=== PATIENT | female | born 2000 | race Caucasian/White ===

== ENCOUNTER 2025-02-21 19:32 | Outpatient (REF) | payer SELFPAY ==
[2025-02-27 21:07] LABS: Age Gdln ACOG Testing Note (.); HPV Aptima Positive (Negative); IGP, rfx Aptima HPV ASCU Note (.)
== END 2025-02-21 19:33 | disposition home or self-care (01) ==
LOC: LAB 19:32
PROVIDERS: Visit Provider Physician Assistant
DX: Z01.419 Encounter for gynecological examination (general) (routine) without abnormal findings (principal)
CPT/HCPCS: 87624; 88175

== ENCOUNTER 2025-03-25 10:23 | Outpatient (REF) | payer SELFPAY ==
--- OUTSIDE RECORDS SUMMARY | 2025-03-25 14:30 | XMS_ITS | Encounter Summary ---
Author Organization [facility] Address [address] [place] [address] Care Team Providers Care Industrial Engineering Intern Name Role Phone Yudy Dick FARMWORKER FRUIT Unavailable Unallocated, Noms Provider Primary Care Provi johana Reason for Visit * Reason Comments Colposcopy Encounter Details Date Type Department Care Team (Late st Contact Info) Description 03/25/2025 2:30 PM EDT Procedure Visit [facility] [address] [facility] [place] [address] Dread Morel, [address] [facility] [address] [place], [facility] ASCUS with positive high risk HPV cervical; Nipple discharge; control counseling; Exposure to STD; Vaginal discharge; BV (bacterial vaginosis); Yeast infection Social History Tobacco Use Types Packs/Day Years Used Date Smoking Tobacco: Never Smokeless Tobacco: Never Alcohol Use Standard Drinks/Week Comments Not Currently 0 (1 standard drink = 0.6 oz pur e alcohol) Comments No Sex and Gender Information Value Date Recorded Sex Assigned at Not on file Legal Sex Female 10:14 PM EDT Gender Identity Not on file Sexual Orientation Not on file documented as of this encounter Last Filed Vital Signs Vital Sign Reading Time Taken Comments Blood Pressure 110/70 03/25/2025 2:34 PM EDT Pulse - - Temperature - - Respiratory Rate - - Oxygen Saturation - - Inhaled Oxygen Concentration - - Weight 71.3 kg (157 lb 1.9 oz) 03/25/2025 2:34 P M EDT Height - - Body Mass Index 30.69 11/25/2022 12:00 PM EDT documented in this encounter Progress Notes * Antonieta Perez, ESTELA - 03/25/2025 2:30 PM EDTAssociated Order(s): Colposcopy Post-Procedure Diagnose(s): ASCUS with positive high risk HPV cervical Reason for Appointment: Patient ID: Lorri Rosen is a 24 y.o. female who presents for Colposcopy Patient presents today for a Colposcopy and consult appointment. MEDICATIONS Current Outpatient Medications Medication Instructions desogestrel-ethinyl estradiol (Apri) 0.15-30 MG-MCG tablet 1 tablet, Oral, Daily fluconazole (DIFLUCAN) 150 mg, Once metroNIDAZOLE (FLAGYL) 500 mg, Oral, 2 times daily, Do not drink alcohol while taking this medication ALLERGIES No Known Allergies PROBLEMS Active Ambulatory Problems Diagnosis Date Noted Vaginal discharge 09/22/2023 Dyspareunia in female 09/22/2023 Resolved Ambulatory Problems Diagnosis Date Noted No Resolved Ambulatory Problems Past Medical History: Diagnosis Date 02/03/2024 BV (bacterial vaginosis) History of UTI HISTORY PAST MEDICAL HISTORY SOCIAL HISTORY Past Medical History: Diagnosis Date 02/03/2024 BV (bacterial vaginosis) History of UTI Social History Tobacco Use Smoking status: Never Smokeless tobacco: Never Substance Use Topics Alcohol use: Not Currently Drug use: Never FAMILY HISTORY Family History Problem Relation Name Age of Onset Endometriosis Sister Ovarian cancer Sister Other (Estrogen driven cancer) Maternal Grandmother SURGICAL HISTORY History reviewed. No pertinent surgical history. REVIEW OF SYSTEMS Review of Systems: Review of Systems Constitutional: Negative. HENT: Negative. Eyes: Negative. Respiratory: Negative. Cardiovascular: Negative. Gastrointestinal: Negative. Genitourinary: Positive for vaginal discharge. Musculoskeletal: Negative. Skin: Negative. Neurological: Negative. All other systems reviewed and are negative. Hematological: Negative. Endocrine: Negative. Allergic/Immunologic: Negative. OBJECTIVE Objective: Physical Exam Constitutional: Appearance: Normal appearance. She is well-developed. Genitourinary: Vulva normal. Breasts: Right: Nipple discharge present. Left: Nipple discharge present. Cardiovascular: Rate and Rhythm: Normal rate and regular rhythm. Pulmonary: Effort: Pulmonary effort is normal. Breath sounds: Normal breath sounds. Abdominal: General: Bowel sounds are normal. There is no distension. Palpations: Abdomen is soft. Tenderness: There is no abdominal tenderness. There is no guarding or rebound. Musculoskeletal: General: No swelling. Normal range of motion. Right lower leg: No edema. Left lower leg: No edema. Neurological: Mental Status: She is alert and oriented to person, place, and time. Skin: General: Skin is warm and dry. Psychiatric: Mood and Affect: Mood normal. Behavior: Behavior normal. Vitals and nursing note reviewed. Exam conducted with a rejoiner present. Vitals: Estimated body mass index is 30.69 kg/m?? as calculated from the following: Height as of 11/25/22: 5'. Weight as of this encounter: 157 lb 1.9 oz. BP: 110/70 No LMP recorded (approximate). (Menstrual status: Oral Contraception). ASSESSMENT & PLAN Assessment/Plan Encounter Diagnosis: ICD-10-CM 1. ASCUS with positive high risk HPV cervical R87.610 POCT , urine manually resulted R87.810 Colposcopy 2. Nipple discharge N64.52 hCG, quantitative, TSH T4, free CBC and differential Follicle stimulating hormone Luteinizing hormone Hemoglobin A1c DHEA-sulfate DHEA Prolactin DHEA BV every 2-3 weeks, bilateral nipple discharge--cotton underwear, sensitive skin soap--metrogel Colposcopy Date/Time: 03/25/2025 3:27 PM Performed by: Dread Morel DO Authorized by: Dread Morel DO Procedure location: cervix Consent: Patient questions answered: yes Risks and benefits of the procedure and its alternatives discussed: yes Consent obtained: Written Consent given by: Patient Indication: Cervical indication(s): high-risk HPV positive and ASCUS Pre-procedure: Speculum was placed in the vagina: yes Prep solution(s): acetic acid Procedure: Colposcopy with: endocervical curettage Biopsy taken: no Cervix visibility: fully visualized Cervical impression: normal/benign Ferric subsulfate solution applied: no Tampon inserted: no Post-procedure: Patient tolerance of procedure: Patient tolerated the procedure well with no immediate complications Instructions and paperwork completed: yes Educational handouts given: no Colposcopy: Patient is doing well and has no complaints. Pap results have been reviewed with the patient in great detail and patient voiced understanding. Patient presents today for a Colposcopy with ECC. Patient was placed in dorsal lithotomy position with feet in stirrups, a sterile speculum was placed into the vagina and the cervix was visualized. Cervix was cleansed with vinegar. Postprocedural instructions given. All if patients questions answered and she expressed understanding. Advised to call in interim with questions or concerns. Patient also complaints of bilateral nipple discharge and ongoing vaginal discharge/BV. Discussed with patient regimen of Flagyl BID for 7 days, then Metrogel twice weekly for 3-6 months & also sent in Diflucan x2 doses after completing Flagyl regimen. Obtained vaginal cultures to send out for testing. Patient also had complaints of bilateral nipple discharge and patient was able excrete nipple discharge from left nipple and culture was obtained to ravi/aerobic testing. Follow Up: Patient is to schedule telehealth appointment in 8 weeks to follow up in vaginal discharge and see if medication regimen is working. Patient also to return in 6 months for Repeat Pap. Documented by Antonieta Perez LPN on behalf of: Dread Morel DO documented in this encounter Plan of Treatment Upcoming Encounters Date Type Department Care Team (Late st Contact Info) Description 05/20/2025 8:10 AM EDT Office Visit [facility] [address] [place] [address] Dread Morel DO [address] [place] [address] 10/02/2025 3:00 PM EST Procedure Visit OMISES HOFFMAN [address] [place] [address] Dread Morel DO [address] [place] [address] Scheduled Orders Name Type Priority Associated Diagnoses Order Schedule Colposcopy Procedures Routine ASCUS with positive high risk HPV cervical Expected: 03/25/2025 (Approximate), Expires: 03/25/2026 hCG, quantitative, Lab Routine Nipple discharge Ordered: 03/25/2025 TSH Lab Routine Nipple discharge Ordered: 03/25/2025 T4, free Lab Routine Nipple discharge Ordered: 03/25/2025 CBC and differential Lab Routine Nipple discharge Ordered: 03/25/2025 Follicle stimulating hormone Lab Routine Nipple discharge Ordered: 03/25/2025 Luteinizing hormone Lab Routine Nipple discharge Ordered: 03/25/2025 Hemoglobin A1c Lab Routine Nipple discharge Ordered: 03/25/2025 DHEA-sulfate Lab Routine Nipple discharge Ordered: 03/25/2025 DHEA Lab Routine Nipple discharge Expected: 03/25/2025 (Approximate), Expires: 03/25/2026 Prolactin Lab Routine Nipple discharge Ordered: 03/25/2025 SURESWAB(R) ADVANCED VAGINITIS PLUS, TMA Pathology and Cytology Routine Vaginal discharge Ordered: 03/25/2025 CHLAMYDIA TRACHOMATIS (GENITO/STI) Lab Routine Exposure to STD Ordered: 03/25/2025 Neisseria gonorrhea DNA probe, direct Lab Routine Exposure to STD Ordered: 03/25/2025 Anaerobic culture Microbiology Routine Nipple discharge Ordered: 03/25/2025 Aerobic culture Microbiology Routine Nipple discharge Ordered: 03/25/2025 documented as of this encounter Procedures Procedure Name Priority Date/Time Associated Diagnosis Comments COLPOSCOPY Routine 03/25/2025 3:27 PM EDT ASCUS with positive high risk HPV cervical POCT , URINE Routine 03/25/2025 2:43 PM EDT ASCUS with positive high risk HPV cervical documented in this encounter Results * Colposcopy (03/25/2025 3:27 PM EDT) Antonieta Lauren LPN - 03/25/2025 3:27 PM EDT Antonieta Perez LPN 03/27/2025 3:18 PM Colposcopy Date/Time: 03/25/2025 3:27 PM Performed by: Dread Morel DO Authorized by: Dread Morel DO Procedure location: cervix Consent: Patient questions answered: yes Risks and benefits of the procedure and its alternatives discussed: yes Consent obtained: Written Consent given by: Patient Indication: Cervical indication(s): high-risk HPV positive and ASCUS Pre-procedure: Speculum was placed in the vagina: yes Prep solution(s): acetic acid Procedure: Colposcopy with: endocervical curettage Biopsy taken: no Cervix visibility: fully visualized Cervical impression: normal/benign Ferric subsulfate solution applied: no Tampon inserted: no Post-procedure: Patient tolerance of procedure: Patient tolerated the procedure well with no immediate complications Instructions and paperwork completed: yes Educational handouts given: no us Dread Maria Teresa DO IN CLINIC/BEDSIDE ORDERABLES Fin al Result * POCT , urine manually resulted (03/25/2025 2:43 PM EDT) Preg Test, Ur Negative Negative Urine 03/25/2025 2:43 PM EDT us Dread Maria Teresa DO POINT OF CARE TEST ENTER/EDIT OR DERABLES Final Result documented in this encounter Visit Diagnoses Diagnosis ASCUS with positive high risk HPV cervical Nipple discharge Other sign and symptom in breast control counseling Exposure to STD Vaginal discharge Leukorrhea, not specified as infective BV (bacterial vaginosis) Unspecified vaginitis and vulvovaginitis Yeast infection documented in this encounter Care Teams Industrial Engineering Intern Relationship Specialty Start Date End Date Unallocated, Noms Provider, [place] [address] PCP - General 07/04/23 Yudy Dick NP [address] [place] [address] Referring Physician Family Medicine 07/04/23 documented as of this encounter
--- OUTSIDE RECORDS SUMMARY | 2025-04-02 10:26 | XMS_ITS | Encounter Summary ---
Author Organization [facility] Address [address] [facility] [place] [address] Care Team Providers Care Pot Fisher Name Role Phone Yudy Dick ELECTRICAL APPLIANCE SERVICER Unavailable Unallocated, Noms Provider Primary Care Provi johana Encounter Details Date Type Department Care Team (Late Contact Info) Description 03/01/2025 Orders Only MOISES HOFFMAN [address] [place] [address] [place] [address] Vi Villatoro MA [address] [place] [address] [place] [address] Social History Tobacco Use Types Packs/Day Years [...] on file documented as of this encounter Plan of Treatment Upcoming Encounters Date Type Department Care Team (Late Contact Info) Description 05/20/2025 8:10 AM EDT Office Visit MOISES HOFFMAN [address] [place] [address] [place] [address] Dread Morel, DO [address] [facility] [address] Kane [place], [facility]11 10/02/2025 3:00 PM EST Procedure Visit MOISES HOFFMAN [address] [place] [address] [place] [address] Dread Morel, DO [address] [place], [facility]11 documented as of this encounter Procedures Procedure Name Priority Date/Time Associated Diagnosis Comments PAP SMEAR Routine 02/22/2024 12:00 AM EDT documented in this encounter Results * (ABNORMAL) Pap Smear (02/22/2024 12:00 AM EDT) Swab Cervical swab / Unknown Nasreen PEREZ LAB CYTOLOGY ORDERABLES Final Re sult EXTERNAL LAB documented in this encounter Visit Diagnoses Not on filedocumented in this encounter Care Teams Pot Fisher Relationship Specialty Start Date End Date Unallocated, Noms Provider, [address] [place] [address] PCP - General 07/04/23 Yudy Dick NP [address] [place] [address] Referring Physician Family Medicine 07/04/23 documented as of this encounter
--- OUTSIDE RECORDS SUMMARY | 2025-04-02 10:26 | XMS_ITS | Encounter Summary ---
Author Organization [facility] Address [address] [place] [address] Care Team Providers Care Vp Mobile Products Name Role Phone Yudy Dick CONVERTER SKIMMER Unavailable Unallocated, Noms Provider Primary Care Provi johana Encounter Details Date Type Department Care Team (Late Contact Info) Description 03/05/2025 Orders Only MOISES HOFFMAN [address] [facility] [place] [address] Ashley Morley LPN [address] [facility] [address] [facility]11 Social History Tobacco Use Types Packs/Day Years [...] AM EDT Office Visit MOISES HOFFMAN [address] [facility] [place] [address] Dread Morel DO [address] [facility] [address] [place], [place] [id number] 10/02/2025 3:00 PM EST Procedure Visit [facility]OM[facility] HOFFMAN [address] [place] [address] [place] [address] Dread Morel DO [address] [place], [place] [address] [place] [address] documented as of this encounter Procedures Procedure Name Priority Date/Time Associated Diagnosis Comments PAP SMEAR Routine 02/21/2025 12:00 AM EDT documented in this encounter Results * (ABNORMAL) Pap Smear (02/21/2025 12:00 AM EDT) Swab Cervical swab / Unknown Maria Teresa Nurse Noms Bcp Ob LAB CYTOLOGY ORDERABLES Final Result EXTERNAL LAB documented in this encounter Visit Diagnoses Not on filedocumented in this encounter Care Teams Vp Mobile Products Relationship Specialty Start Date End Date Unallocated, Noms Provider, [place] [address] PCP - General 07/04/23 Yudy Dick NP [address] [place] [address] Referring Physician Family Medicine 07/04/23 documented as of this encounter
--- OUTSIDE RECORDS SUMMARY | 2025-04-02 10:26 | XMS_ITS | Encounter Summary ---
Author Organization [facility] Address [address] [place] [address] Care Team Providers Care Dance Critic Name Role Phone Yudy Dick MANAGER ASSEMBLY Unavailable Unallocated, Noms Provider Primary Care Provi johana Encounter Details Date Type Department Care Team (Late st Contact Info) Description 03/25/2025 External Result Encounter [facility] External Department Unsolicited Dread Morel, DO [address] [place], [facility]11 Social History Tobacco Use Types Packs/Day [...] 8:10 AM EDT Office Visit MOISES HOFFMAN [facility] [address] Dread Morel, DO [address] [place], [facility]11 10/02/2025 3:00 PM EST Procedure Visit MOISES HOFFMAN [facility] [place] [address] Dread Morel, DO [address] [place], [place] [id number] documented as of this encounter Procedures Procedure Name Priority Date/Time Associated Diagnosis Comments RECURRENT VAGINITIS (HTRX) Routine 03/25/2025 3:24 PM EDT documented in this encounter Results * (ABNORMAL) RECURRENT VAGINITIS (HTRX) (03/25/2025 3:24 PM EDT) [facility] ATOPOBIUM VAGINAE 0 19.961 - 24.689 ppm 03/26/2025 12:06 PM EDT [facility] ATOPOBIUM VAGINAE Not Detected 19.961 - 24.689 ppm 03/26/2025 12:06 PM EDT [facility] BVAB 2,3 (BACTERIAL VAGINOSIS ASSOCIATED BACTERIA 2, 3); MOBILUNCUS SPP 0 19.961 - 24.689 ppm 03/26/2025 12:06 PM EDT [facility] BVAB 2,3 (BACTERIAL VAGINOSIS ASSOCIATED BACTERIA 2, 3); MOBILUNCUS SPP Not Detected 19.961 - 24.689 ppm 03/26/2025 12:06 PM EDT [facility] CAN ALBICANS, PARAPSILOSIS, TROPICALIS 0 23.000 - 30.347 ppm 03/26/2025 12:06 PM EDT [facility] CAN ALBICANS, PARAPSILOSIS, TROPICALIS Not Detected 23.000 - 30.347 ppm 03/26/2025 12:06 PM EDT [facility] CAN GLABRATA 0 23.000 - 31.618 ppm 03/26/2025 12:06 PM EDT [facility] CAN GLABRATA Not Detected 23.000 - 31.618 ppm 03/26/2025 12:06 PM EDT [facility] CAN KRUSEI 0 23.000 - 30.873 ppm 03/26/2025 12:06 PM EDT [facility] CAN KRUSEI Not Detected 23.000 - 30.873 ppm 03/26/2025 12:06 PM EDT [facility] CHLAMYDIA TRACHOMATIS 0 23.000 - 31.586 ppm 03/26/2025 12:06 PM EDT [facility] CHLAMYDIA TRACHOMATIS Not Detected 23.000 - 31.586 ppm 03/26/2025 12:06 PM EDT [facility] GARDNERELLA VAGINALIS 27.334(A) 19.961 - 24.689 ppm 03/26/2025 12:06 PM EDT [facility] GARDNERELLA VAGINALIS Detected(A) 19.961 - 24.689 ppm 03/26/2025 12:06 PM EDT [facility] MEGASPHAERA (TYPES 1, 2) 0 19.961 - 24.689 ppm 03/26/2025 12:06 PM EDT [facility] MEGASPHAERA (TYPES 1, 2) Not Detected 19.961 - 24.689 ppm 03/26/2025 12:06 PM EDT [facility] NEISSERIA GONORRHOEAE 0 23.000 - 32.587 ppm 03/26/2025 12:06 PM EDT [facility] NEISSERIA GONORRHOEAE Not Detected 23.000 - 32.587 ppm 03/26/2025 12:06 PM EDT [facility] TRICHOMONAS VAGINALIS 0 23.000 - 31.995 ppm 03/26/2025 12:06 PM EDT [facility] TRICHOMONAS VAGINALIS Not Detected 23.000 - 31.995 ppm 03/26/2025 12:06 PM EDT [facility] MYCOPLASMA GENITALIUM 0 19.961 - 24.689 ppm 03/26/2025 12:06 PM EDT [facility] MYCOPLASMA GENITALIUM Not Detected 19.961 - 24.689 ppm 03/26/2025 12:06 PM EDT [facility] ERMB, C; MEFA 25.313(A) 23.000 - 27.500 ppm 03/26/2025 12:06 PM EDT [facility] ERMB, C; MEFA Detected(A) 23.000 - 27.500 ppm 03/26/2025 12:06 PM EDT [facility] TET B, TET M 25.93(A) 23.000 - 27.500 ppm 03/26/2025 12:06 PM EDT [facility] TET B, TET M Detected(A) 23.000 - 27.500 ppm 03/26/2025 12:06 PM EDT [facility] Tissue 03/25/2025 3:24 PM EDT 03/26/2025 1:19 AM EDT us Dread Maria Teresa DO LAB BLOOD ORDERABLES Final Resul t [facility] [address] [id number] documented in this encounter Visit Diagnoses Not on filedocumented in this encounter Care Teams Dance Critic Relationship Specialty Start Date End Date Unallocated, Noms Provider, [address] [place] [address] PCP - General 07/04/23 Yudy Dick NP [address] [place] [address] Referring Physician Family Medicine 07/04/23 documented as of this encounter
--- OUTSIDE RECORDS SUMMARY | 2025-04-02 10:26 | XMS_ITS | Encounter Summary ---
Author Organization [facility] Address [address] [facility] [place] [address] Care Team Providers Care Data Input Clerk Name Role Phone Yudy Dick INORGANIC CHEMISTRY PROFESSOR Unavailable Unallocated, Noms Provider Primary Care Provi johana Encounter Details Date Type Department Care Team (Late Contact Info) Description 02/24/2024 Abstract MOISES HOFFMAN [place] [address] Dread Morel DO [address], [facility]11 Social History Tobacco Use Types Packs/Day Years Used Date Smoking Tobacco: Never Smokeless Tobacco: Never Alcohol Use Standard Drinks/Week Comments Not Currently 0 (1 standard drink = 0.6 oz pur e alcohol) Comments Unknown Sex and Gender Information Value Date Recorded Sex Assigned at Not on file Legal Sex Female 10:14 PM EDT Gender Identity Not on file Sexual Orientation Not on file documented as of this encounter Plan of Treatment Upcoming Encounters Date Type Department Care Team (Late st Contact Info) Description 05/20/2025 8:10 AM EDT Office Visit MOISES HOFFMAN [address] [place] [address] Dread Morel DO [address] [place], [place] [id number] 10/02/2025 3:00 PM EST Procedure Visit MOISES HOFFMAN [address] [place] [address] Dread Morel DO [address] [place] [address] [place] [address] documented as of this encounter Visit Diagnoses Not on filedocumented in this encounter Care Teams Data Input Clerk Relationship Specialty Start Date End Date Unallocated, Noms Provider, [address] [place] [address] PCP - General 07/04/23 Yudy Dick NP [address] [place] [address] Referring Physician Family Medicine 07/04/23 documented as of this encounter
--- OUTSIDE RECORDS SUMMARY | 2025-04-02 10:26 | XMS_ITS | Encounter Summary ---
Author Organization [facility] Address [address] [place] [address] Care Team Providers Care Obstetrics Gynecology Physician Name Role Phone Yudy Dick LEGAL AIDE Unavailable Unallocated, Noms Provider Primary Care Provi johana Encounter Details Date Type Department Care Team (Late Contact Info) Description 04/01/2025 Telephone [facility] OBG[facility] [address] [place] [address] Dread Morel DO [address] [place], [facility]11 Social History Tobacco Use Types Packs/Day Years [...] on file documented as of this encounter Miscellaneous Notes * Telephone Encounter - Ashley Morley LPN - 04/01/2025 2:36 PM EDT Patient called the office and she did have some questions in regards to the labs she did see with the lower values. Patient labs given to Provider and was advised this is due to the Slynd. Patient was called and made aware and voiced understanding. documented in this encounter Plan of Treatment Upcoming Encounters Date Type Department Care Team (Late Contact Info) Description 05/20/2025 8:10 AM EDT Office Visit [facility] [address] [place] [phone] Dread Morel, DO [address] [facility] [place] [address] 10/02/2025 3:00 PM EST Procedure Visit MOISES HOFFMAN [address] [place] [address] Dread Morel, DO [address] [facility] [address] [place], [place] [id number] documented as of this encounter Visit Diagnoses Not on filedocumented in this encounter Care Teams Obstetrics Gynecology Physician Relationship Specialty Start Date End Date Unallocated, Noms MD [place] [address] [place] [address] PCP - General 07/04/23 Yudy Dick NP [address] [place] [address] Referring Physician Family Medicine 07/04/23 documented as of this encounter
--- OUTSIDE RECORDS SUMMARY | 2025-04-02 10:26 | XMS_ITS | Encounter Summary ---
Author Organization [facility] Address [address] [place] [address] Care Team Providers Care Product Safety Engineer Name Role Phone Mayelin, Yudy HYDROELECTRIC PRODUCTION TECHNICIAN Unavailable Unallocated, Noms Provider Primary Care Provi johana Encounter Details Date Type Department Care Team (Late st Contact Info) Description 03/22/2025 Telephone [facility] [address] [employer] [place] [phone] Taylor New LPN [address] [employer] [place] [id number] Social History Tobacco Use Types Packs/Day Years [...] encounter Miscellaneous Notes * Telephone Encounter - Taylor New LPN - 03/22/2025 8:18 AM EDT Pt called stating that about a week ago she thought she had BV and self treated with boric acid. After doing that she noticed that she had a white/skin color chunk of lining come out and it worried her. She called in to get metrogel called in because she was still having symptoms and while using this, she a 2 quarter size bloody chunks of lining come out and this really worried her. After talking to Dr. Morel, I told pt that it may have been from the medications and not to worry about it. Dr. Morel said they could talk more about it at her appointment this coming Tuesday.PVU documented in this encounter Plan of Treatment Upcoming Encounters Date Type Department Care Team (Late st Contact Info) Description 05/20/2025 8:10 AM EDT Office Visit [facility]OFF[facility] [address] [place] [address] [place] [phone] Dread Morel, DO [address] [facility] [address] [place], [place] [address] 10/02/2025 3:00 PM EST Procedure Visit [facility]ES HOFFMAN [address] [facility] [place] [phone] Dread Morel, DO [address] [facility] [address] [place], [id number] documented as of this encounter Visit Diagnoses Not on filedocumented in this encounter Care Teams Product Safety Engineer Relationship Specialty Start Date End Date Unallocated, Noms [place], [address] [place] [address] PCP - General 07/04/23 Yudy Dick NP [address] [place] [phone] Referring Physician Family Medicine 07/04/23 documented as of this encounter
--- OUTSIDE RECORDS SUMMARY | 2025-04-02 10:26 | XMS_ITS | Encounter Summary ---
Author Organization [facility] Address [address] [place] [address] Care Team Providers Care Traffic Maintenance Officer Name Role Phone Yudy Dick QUAD STAYER Unavailable Unallocated, Noms Provider Primary Care Provi johana Encounter Details Date Type Department Care Team (Late st Contact Info) Description 03/26/2025 Telephone [facility]BGYN [address] [facility] [phone] Vi Villatoro MA [address] [place] [address] Social History Tobacco Use Types Packs/Day Years [...] encounter Miscellaneous Notes * Telephone Encounter - Vi Villatoro MA - 03/26/2025 9:29 AM EDT Called pt to advise of cx results. Pt stated she is [facility] Nuvessa medication sent to her. Pt was aware of cx results. And asked if her other 2 results came back too? I advised pt only the healthtrack results came back. It will be a few days until we get results fromthe others that were sent out. PVU documented in this encounter Plan of Treatment Upcoming Encounters Date Type Department Care Team (Late st Contact Info) Description 05/20/2025 8:10 AM EDT Office Visit MO[facility]ES HOFFMAN [address] [facility] [address] Dread Morel, DO [address] [facility] [place] [address] 10/02/2025 3:00 PM EST Procedure Visit MOISES HOFFMAN [address] [facility] [place] [address] Dread Morel, DO [address] [facility] [address] [place], [place] [phone] documented as of this encounter Visit Diagnoses Not on filedocumented in this encounter Care Teams Traffic Maintenance Officer Relationship Specialty Start Date End Date Unallocated, Noms MD [place] [address] [place] [id number] PCP - General 07/04/23 Yudy Dick NP [address] [place] [address] [phone] Referring Physician Family Medicine 07/04/23 documented as of this encounter
--- OUTSIDE RECORDS SUMMARY | 2025-04-02 10:26 | XMS_ITS | Encounter Summary ---
Author Organization [facility] Address [address] [facility] [place] [address] Care Team Providers Care Patternmaker Plaster Name Role Phone Yudy Dick COPY SUPERVISOR Unavailable Unallocated, Noms Provider Primary Care Provi johana Encounter Details Date Type Department Care Team (Late Contact Info) Description 03/19/2025 Telephone [facility]MAN [facility] [place] [address] Taylor New LPN [facility] [place] [address] Social History Tobacco Use Types Packs/Day Years [...] Miscellaneous Notes * Telephone Encounter - Taylor eNw LPN - 03/19/2025 9:38 AM EDT Pt called needing flagyl and diflucan called into her pharmacy. I told her that I could do that forher. PVU documented in this encounter Plan of Treatment Upcoming Encounters Date Type Department Care Team (Late Contact Info) Description 05/20/2025 8:10 AM EDT Office Visit [facility]chal HOFFMAN [facility] [employer] [place] [phone] Dread Morel, [address] [facility] [place] [address] 10/02/2025 3:00 PM EST Procedure Visit [facility] [place] [facility] [address] [facility] [place] [address] Dread Morel, DO [address] [facility] [place] [address] documented as of this encounter Visit Diagnoses Diagnosis Yeast infection BV (bacterial vaginosis) Unspecified vaginitis and vulvovaginitis documented in this encounter Care Teams Patternmaker Plaster Relationship Specialty Start Date End Date Unallocated, Noms MD [place] [address] [place] [address] PCP - General 07/04/23 Yudy Dick NP [address] [place] [id number] Referring Physician Family Medicine 07/04/23 documented as of this encounter
--- OUTSIDE RECORDS SUMMARY | 2025-04-02 10:26 | XMS_ITS | Encounter Summary ---
Author Organization [facility] Address [address] [place] [address] Care Team Providers Care Basket Turner Name Role Phone Yudy Dick HANDBAG OPERATOR Unavailable Unallocated, Noms Provider Primary Care Provi johana Encounter Details Date Type Department Care Team (Late st Contact Info) Description 03/25/2025 Clinisync Result Encounter [facility] External Department Unsolicited Dread Morel, DO [address] [place], [facility] Social History Tobacco Use Types Packs/Day [...] 8:10 AM EDT Office Visit MOISES HOFFMAN [facility] [place] [address] Dread Morel, DO [address] [place], [place] [address] 10/02/2025 3:00 PM EST Procedure Visit [facility]ES HOFFMAN [address] [place] [address] Dread Morel, DO [address] [place], [facility] documented as of this encounter Procedures Procedure Name Priority Date/Time Associated Diagnosis Comments TBH PROLACTIN Routine 03/25/2025 3:45 PM EDT TBH PREG QUANT HCG Routine 03/25/2025 3: 45 PM EDT MLR HEMOGLOBIN A1C Routine 03/25/2025 3: 45 PM EDT ALL THYROXINE (T4) FREE Routine 03/25/2025 3:45 PM EDT ALL THYROID STIM HORMONE Routine 03/25/2025 3:45 PM EDT ALL LUTEINIZING HORMONE Routine 03/25/2025 3:45 PM EDT ALL FOLLICLE STIMULATING HORMONE Routine 03/25/2025 3:45 PM EDT ALL DHEA SULFATE Routine 03/25/2025 3:45 PM EDT ALL CBC WITH AUTO DIFF Routine 03/25/2025 3:45 PM EDT documented in this encounter Results * TBH PROLACTIN (03/25/2025 3:45 PM EDT) PROLACTIN 8.2 4.8 - 33.4 ng/mL TBH Comment: Performed at: - Lab[address] [id number] Airbrush Artist: Harpal Durbin PhD, Phone: [phone] 03/25/2025 3:45 PM EDT 03/25/2025 3:47 PM EDT Narrative [facility]IN[facility] - 03/27/2025 4:07 AM EDT us Dread Maria Teresa DO [facility]IN[facility] Final Result [facility] TB * ALL FOLLICLE STIMULATING HORMONE (03/25/2025 3:45 PM EDT) FSH 0.4 . mIU/mL TBH Comment: Adult Female Range Follicular phase 3.5 - 12.5 Ovulation phase 4.7 - 21.5 Luteal phase 1.7 - 7.7 Postmenopausal 25.8 - 134.8 03/25/2025 3:45 PM EDT 03/25/2025 3:47 PM EDT Narrative CLINISY[facility] - 03/27/2025 4:07 AM EDT us Dread Maria Teresa DO [facility] * ALL LUTEINIZING HORMONE (03/25/2025 3:45 PM EDT) LUTEINIZING HORMONE(LH) <0.3 . mIU/mL TBH Comment: Adult Female Range Follicular phase 2.4 - 12.6 Ovulation phase 14.0 - 95.6 Luteal phase 1.0 - 11.4 Postmenopausal 7.7 - 58.5 03/25/2025 3:45 PM EDT 03/25/2025 3:47 PM EDT Narrative CLINISYNC - 03/27/2025 4:07 AM EDT us Dread Maria Teresa DO [facility] * ALL DHEA SULFATE (03/25/2025 3:45 PM EDT) DHEA-SULFATE 267.0 84.8 - 378.0 ug/dL TBH 03/25/2025 3:45 PM EDT 03/25/2025 3:47 PM EDT Narrative CLINISYNC - 03/27/2025 4:07 AM EDT Dread Maria Teresa DO [facility] Final [facility] * ALL THYROXINE (T4) FREE (03/25/2025 3:45 PM EDT) FREE T4 1.21 0.76 - 1.46 ng/dL TBH 03/25/2025 3:45 PM EDT 03/25/2025 3:47 PM EDT Narrative CLINISYNC - 03/25/2025 4:53 PM EDT us Dread Maria Teresa DO CLINIS[facility] Final Result [facility] TB * TBH PREG QUANT HCG (03/25/2025 3:45 PM EDT) HCG QUANTITATIVE <1 mIU/mL TBH Comment: 5-50 0.2-1 WEEK 50-500 1-2 WEEKS 100-5,000 2-3 WEEKS 500-10,000 3-4 WEEKS 1,000-50,000 4-5 WEEKS 10,000-100,000 5-6 WEEKS 15,000-200,000 6-8 WEEKS 10,000-100,000 2-3 MONTHS 03/25/2025 3:45 PM EDT 03/25/2025 3:47 PM EDT Narrative CLIN[facility] - 03/25/2025 4:35 PM EDT us Dread Maria Teresa DO [facility] * ALL THYROID STIM HORMONE (03/25/2025 3:45 PM EDT) THYROID STIMULATING HORMONE 1.384 0.358 - 3.740 uIU/mL TBH 03/25/2025 3:45 PM EDT 03/25/2025 3:47 PM EDT Narrative CLINISYNC - 03/25/2025 4:35 PM EDT us Dread Maria Teresa DO [facility] Final Result [facility] * MLR HEMOGLOBIN A1C (03/25/2025 3:45 PM EDT) [facility] GLYCOHEMOGLOBIN A1C 4.9 4.5 - 6.2 % TB Comment: ADA RECOMMENDED LIMIT 4.0 - 6.0 ADA THERAPEUTIC TARGET < 7.0 ACTION SUGGESTED > 7.0 ESTIMATED AVERAGE GLUCOSE 94 mg/dL TB 03/25/2025 3:45 PM EDT 03/25/2025 3:47 PM EDT Narrative CLINISYNC - 03/25/2025 4:15 PM EDT us Dread Maria Teresa DO [facility] Final Result [facility] * ALL CBC WITH AUTO DIFF (03/25/2025 3:45 PM EDT) [facility] WBC 7.3 4.0 - 11.0 10 3/uL TBH TB RBC 4.29 4.20 - 5.40 10 6/uL TBH TB HGB 13.4 12.0 - 16.0 g/dL TB TB HCT 39.6 36.0 - 48.0 % TB TB MCV 92.3 81.0 - 99.0 fL TB TB MCH 31.2 26.7 - 34.0 pg TBH TB MCHC 33.8 29.9 - 35.2 g/dL TB TB RDW 11.9 11.0 - 15.0 % TBH TBH PLT 236 150 - 450 10 3/uL TB TB MPV 10.9 9.5 - 13.5 fL TB NEUTROPHILS PERCENT AUTO 55.5 43.0 - 75.0 % TBH LYMPHOCYTES PERCENT AUTO 36.2 20.5 - 60.0 % TBH MONOCYTES PERCENT AUTO 6.5 1.7 - 12.0 % TBH TBH EO % 1.1 0.9 - 7.0 % TBH BASOPHILS PERCENT AUTO 0.6 0.2 - 2.0 % TBH IMMATURE GRANULOCYTES PCT AUTO 0.1 0.0 - 0.5 % TBH NEUTROPHILS ABSOLUTE AUTO 4.0 1.4 - 6.5 10 3/uL TBH LYMPHOCYTES ABSOLUTE AUTO 2.6 1.2 - 3.8 10 3/uL TBH MONOCYTES ABSOLUTE AUTO 0.5 0.3 - 0.8 10 3/uL TBH TBH EO # 0.1 0.0 - 0.7 10 3/uL TBH BASOPHILS ABSOLUTE AUTO 0.0 0.0 - 0.1 10 3/uL TBH IMMATURE GRANULOCYTES ABS AUTO 0.01 0.00 - 0.03 10 3/uL TBH 03/25/2025 3:45 PM EDT 03/25/2025 3:47 PM EDT Narrative CLINISYNC - 03/25/2025 3:59 PM EDT us Dread Maria Teresa DO [facility] documented in this encounter Visit Diagnoses Not on filedocumented in this encounter Care Teams Basket Turner Relationship Specialty Start Date End Date Unallocated, Noms Provider, [address] [place], [place] [phone] PCP - General 07/04/23 Yudy Dick NP [address] [place] [phone] Referring Physician Family Medicine 07/04/23 documented as of this encounter
== END 2025-03-25 10:24 | disposition home or self-care (01) ==
LOC: LAB 10:23
PROVIDERS: Visit Provider Obstetrics & Gynecology
DX: R87.610 Atypical squamous cells of undetermined significance on cytologic smear of cervix (ASC-US) (principal)
CPT/HCPCS: 88305; 88341; 88342; 88360

== ENCOUNTER 2025-03-25 15:31 | Outpatient (OUT) | payer SELFPAY ==
[2025-03-25 15:54] LABS: Hematocrit 39.6 % (36.0-48.0); Hemoglobin 13.4 g/dL (12.0-16.0); Immature Granulocytes Abs Auto 0.01 10^3/uL (0.00-0.03); Immature Granulocytes Pct Auto 0.1 % (0.0-0.5); Lymphocytes Absolute Auto 2.6 10^3/uL (1.2-3.8); Mean Corpuscular HGB Conc 33.8 g/dL (29.9-35.2); Mean Corpuscular Hemoglobin 31.2 pg (26.7-34.0); Mean Corpuscular Volume 92.3 fL (81.0-99.0); Platelet Count 236 10^3/uL (150-450); Red Blood Count 4.29 10^6/uL (4.20-5.40); White Blood Count 7.3 10^3/uL (4.0-11.0)
[2025-03-25 16:25] LABS: Thyroid Stimulating Hormone 1.384 uIU/mL (0.358-3.740)
[2025-03-27 04:07] LABS: FSH 0.4 mIU/mL (.)
[2025-04-02 15:08] LABS: DHEA, Serum 274 ng/dL (31-701)
== END 2025-03-25 15:32 | disposition home or self-care (01) ==
LOC: LAB 15:32
PROVIDERS: Visit Provider Obstetrics & Gynecology
DX: N64.52 Nipple discharge (principal)
CPT/HCPCS: 36415; 82626; 82627; 83001; 83002; 83036; 84146; 84439; 84443; 84702; 85025; 87070; 87075